=== PATIENT | female | born 2000 | race Native Hawaiian/Other Pacific Islander ===

== ENCOUNTER 2023-08-27 16:39 | Outpatient (CLI) | payer BC, SELFPAY ==
--- OUTSIDE RECORDS SUMMARY | 2023-08-28 06:09 | XMS_ITS | Continuity of Care Document ---
Author Name Unknown Organization [facility] Address [address] [place] [address] Care Team Providers Care Water Quality Control Engineer Name Role Phone Unavailable Unavailable Unavailable Allergies, [...] Copied on Encounter [facility], [address] [place] [address], [id number], [facility] No Information 0 No Information Referring Provider: SINDY Albert, [address] [place] [address], [address]. tel:[phone] [facility], [address] [place] [address], [id number], [facility] complete exam (chief complaint) Regular astigmatism, bilateral 0 No Information Referring Provider: SINDY Albert, [address] [place] [address], [address]. tel:[phone] [facility], [address], [id number], [facility] No Information 0 0 No Information Referring Provider: SINDY Albert, [address], [place], [address]. tel:[phone] [facility], [address], [place], [place], [id number], [facility] No Information 3 9 No Information Referring Provider: SINDY Albert, [address], [place], [address]. tel:[phone] [facility], [address], [place], [place], [id number], [facility] No Information 0 6201 9 No Information Referring Provider: SINDY Albert, [address], [place], [address]. tel:[phone] [facility], [address], [place], [place], [id number], [facility] No Information 8 No Information Family History Family Member Type Diagnosis Age At Onset Problem Family history of hyperopia Problem Family history of Amblyopia Payers Payer name Insurance type Covered alliance party ID Authoriza tion(s) No Information Social [...]
== END 2023-08-27 16:40 | disposition home or self-care (01) ==
LOC: AMB 08-28 06:07
PROVIDERS: Visit Provider Family Medicine
DX: R06.09 Other forms of dyspnea (principal)
CPT/HCPCS: A0425; A0427

== ENCOUNTER 2023-08-27 17:04 | Emergency (ER) | payer BC, SELFPAY ==
[2023-08-27 17:05] VITALS: BP 102/70; PULSE 95; RESP 20; TEMP 37.2; O2SAT 95; BMI 25.8
--- NOTE | 2023-08-27 17:30 | ED_ITS ---
HPI - Allergic Reaction General Chief complaint: Allergic Reaction Stated complaint: Allergic reaction Time Seen by Provider: 08/27/23 17:05 History of Present Illness HPI narrative: This 23-year-old female comes in reporting tightness in her breathing that occurred about that 90 minutes prior to arrival. She states that she had a meal at about 3:30 p.m., 2 hours ago now. She ate rice and pork belly and about a half an hour later she felt tightness in her breathing. She did not have any sign of angioedema or rash. 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 She does carry an EpiPen but did not use it and has never actually administered epinephrine to herself. She did take Benadryl 50 mg. She came in by ambulance where an IV was established but no treatments were given as she is feeling significantly better. There was lots of anxiety related to this feeling of tightness in her breathing. Related Data Previous Rx's Medication Instructions Recorded methylprednisolone 4 mg tablets in See Rx Instructions PO .COMPLEX 08/27/23 a dose pack (Medrol (Winston)) #21 ea Allergies Allergy/AdvReac Type Severity Reaction Status Date / Time tree nuts Allergy Intermediate Uncoded 08/27/23 17:09 Review of Systems Status of ROS Reports: 10 or more systems reviewed and unremarkable except as noted in History and below Narrative Constitutional: No fevers, no weight gain or loss. Eyes: No discharge. No vision changes. HENT: No congestion, no sore throat, no ear pain. Cardiovascular: No chest pain, no palpitations. Respiratory: No wheezes, no cough. She reports an episode of tight breathing as described above. Gastrointestinal: No abdominal pain, no vomiting, no diarrhea. Genitourinary: No dysuria, no hematuria. Musculoskeletal: Normal range of motion. Skin: No rashes, no pruritis. Neurological: No dizziness, weakness, sensory change, speech change. Endo/Heme/Allergies: No bruising or bleeding. No polydipsia. Pysch: no suicidality, no anxiety, no insomnia. All other systems reviewed and are negative. Exam Narrative: Exam Narrative: Constitutional: Well-developed, well-nourished, no acute distress. HEENT: Normocephalic, atraumatic. Neck: Normal range of motion. Nontender. Supple. Heart: Regular. No murmurs. Normal rate. Intact distal pulses. Lungs: Clear to auscultation. No chest discomfort. No wheezes, rhonchi, or r ales. Abdomen: Normal bowel sounds. Nontender. No rebound tenderness. Genitalia: Deferred. Back: No midline tenderness. Normal range of motion. Extremities: Normal range of motion. No injury. Skin: Intact. No rash. Warm. No erythema or pallor. No sign of angioedema or anaphylaxis. Neurologic: No altered sensation. No weakness. Alert and oriented. Psychiatric: No suicidality. No anxiety or depression. No insomnia. Nursing notes and vitals signs are reviewed. Const: Vital Signs, click to edit/add: Vital Signs - 24 hr 08/27/23 17:05 Temperature 99 F Pulse Rate [Pulse Oximeter] 95 Respiratory Rate 20 Blood Pressure [Ri ght Upper Arm] 102/70 Pulse Oximetry 95 Oxygen Delivery Me thod Room Air Course Vital Signs Vital signs: Initial Vital Signs Temperature 99 F 08/27/23 17:05 Temperature Source Temporal Artery Scan 08/27/23 17:05 Pulse Rate 95 08/27/23 17:05 Respiratory Rate 20 08/27/23 17:05 Blood Pressure 102/70 08/27/23 17:05 Blood Pressure Mean 80 08/27/23 17:05 Blood Pressure Position Supine 08/27/23 17:05 Pulse Oximetry 95 08/27/23 17:05 Oxygen Delivery Method Room Air 08/27/23 17:05 Vital Signs Temperature 99 F 08/27/23 17:05 Pulse Rate 95 08/27/23 17:05 Respiratory Rate 20 08/27/23 17:05 Blood Pressure 102/70 08/27/23 17:05 Pulse Oximetry 95 08/27/23 17:05 Oxygen Delivery Method Room Air 08/27/23 17:05 Temperature 99 F 08/27/23 17:05 Pulse Rate 95 08/27/23 17:05 Respiratory Rate 20 08/27/23 17:05 Blood Pressure 102/70 08/27/23 17:05 Pulse Oximetry 95 08/27/23 17:05 Oxygen Delivery Method Room Air 08/27/23 17:05 Medications Administered Medications: Discontinued Medications Generic Name Dose Route Start Last Admin Trade Name Freq PRN Reason Stop Dose Admin Methylprednisolone Sodium Succinate 125 mg 08/27/23 17:30 08/27/23 17:34 Methylprednisolone Sod Succ 62.5 Mg/Ml (125) IVP 08/27/23 17:31 125 mg ONCE ONE Administration MDM - Allergic Reaction MDM Narrative Medical decision making narrative: This patient comes in because of a feeling of tightness in her throat that occurred about half an hour after taking a meal. She does report a history of reaction to tree nuts and did not know of any such component in her meal. She did take Benadryl and is feeling better now but does not ascribe her improvement to the Benadryl self. She arrives here about 2 hours after exposure and an hour and a half after her symptoms which have now resolved. The time frame is just passed where a days level could be helpful to diagnose what affect the mast cell response would be for her symptoms here. The patient arrives with normal vital signs and feels normal except for some lingering anxiety related to this episode. She did receive an IV dose of Solu-Medrol 125 mg and was observed for an extra hour. She is not showing any further symptoms and is okay to be discharged home. She is taking Claritin as she does have other generalized allergy symptoms this time of year. Discharge Plan Discharge Clinical Impression: Allergic reaction Patient Disposition: Home, Self-Care Condition: Improved Additional Instructions: Use oral antihistamines as needed and directed. Use EpiPen also if symptoms of angioedema or anaphylaxis occur. Follow up with MD return if worsening. Prescriptions: New methylprednisolone [Medrol ([place])] 4 mg tablets,dose pack See Rx Instructions .ROUTE .COMPLEX Qty: 21 0RF Rx Instructions: orally per package directions Stand Alone Forms: [employer] Info Instructions
[2023-08-27] MEDS: METHYLPREDNISOLONE SOD SUCC 62.5 MG/ML (125) 125 MG IVP (17:34)
--- OUTSIDE RECORDS SUMMARY | 2023-08-27 17:50 | XMS_ITS | Continuity of Care Document ---
Author Name Unknown Organization [facility] Address [address] [place] [address] Care Team Providers Care Wall Attendant Name Role Phone Unavailable Unavailable Unavailable Allergies, Adverse Reactions, Alerts Substance Reaction Status Criticality tree nut Active No Information peanut Active No Information Procedures Procedure Date VALID UNBILLABLE DAY OR BERG DETERM REFRACTIVE STATE OPHTH SERV: MED EXAM; COMP EST 20 DETERMINATION OF REFRACTIVE STATE SCRIPT & FIT CONTACT; EX APHAK OPHTH SERV: MED EXAM; COMP EST DETERM REFRACTIVE STATE Advance Directives Directive Yes / No Effective Date File Name No Information Encounters Encounter Description Practice Location Reason(s) For Visit Diagnoses Date Provider Providers Copied on Encounter [facility], [address] [place] [address], [id number], [facility] No Information 0 No Information Referring Provider: SINDY Albert, [address] [place] [address], [id number]. tel:[phone] [facility], [address], [id number], [facility] complete exam (chief complaint) Regular astigmatism, bilateral 0 No Information Referring Provider: SINDY Albert, [address] [place] [address], [address]. tel:[phone] [facility], [address], [id number], [facility] No Information 0 0 No Information Referring Provider: SINDY Albert, [address], [place], [address]. tel:[phone] [facility], [address], [place], [place], [id number], [facility] No Information 3 9 No Information Referring Provider: SINDY Albert, [address], [place], [address]. tel:[phone] [facility], [address], [place], [place], [id number], [facility] No Information 0 6201 9 No Information Referring Provider: SINDY Albert, [address], [place], [address]. tel:[phone] [facility], [address], [place], [place], [id number], [facility] No Information 8 No Information Family History Family Member Type Diagnosis Age At Onset Problem Family history of Amblyopia Problem Family history of hyperopia Payers Payer name Insurance type Covered constitution party ID Authoriza tion(s) No Information Social History Type Description Quantity Date Captured Comments Sex Female Smoking Status No Information Chief Complaint And Reason For Visit No Information History Of Present Illness Encounter Date Complaint History Of Prese nt Illness complete exam Annual complete eye exam. Hasn't been wearing contacts that much, doesn't need an updated rx for today. Wearing glasses for near work. 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 Seeing well with glasses. No squinting. No guzman's or double vision. No other concerns noted. Instructions Date Instruction Additional Infor mation No Information Assessments Type Assessment Date No Information
--- OUTSIDE RECORDS SUMMARY | 2023-08-27 17:51 | XMS_ITS | Continuity of Care Document ---
Author Name Unknown Organization [facility] Address [address] [place] [address] Care Team Providers Care Ground Crewman Mission Support Name Role Phone Unavailable Unavailable Unavailable Allergies, [...] Copied on Encounter [facility], [address] [place] [address], [id number], [facility] No Information 0 No Information Referring Provider: SINDY Albert, [address] [place] [address], [address]. tel:[phone] [facility], [address], [place], [id number], [facility] complete exam (chief complaint) Regular astigmatism, bilateral 0 No Information Referring Provider: SINDY Albert, [address] [place] [address], [address]. tel:[phone] [facility], [address], [place], [id number], [facility] No Information 0 0 No Information Referring Provider: SINDY Albert, [address], [place], [address]. tel:[phone] [facility], [address], [place], [place], [id number], [facility] No Information 3 9 No Information Referring Provider: SINDY Albert, [address], [place], [address]. tel:[phone] [facility], [address], [place], [place], [id number], [facility] No Information 0 6201 9 No Information Referring Provider: SINDY Albert, [address], [place], [address]. tel:[phone] [facility], [address], [place], [place], [id number], [facility] No Information 8 No Information Family History Family Member Type Diagnosis Age At Onset Problem Family history of hyperopia Problem Family history of Amblyopia Payers Payer name Insurance type Covered constitution [...]
[2023-08-27 18:18] VITALS: PULSE 85; O2SAT 98
[2023-08-27 18:30] VITALS: PULSE 86; O2SAT 100
[2023-08-27 18:31] VITALS: BP 93/67; PULSE 81; RESP 18; O2SAT 98
== END 2023-08-27 18:46 | disposition home or self-care (01) ==
LOC: ED 17:49
PROVIDERS: Emergency Provider Emergency Medicine Emergency Medical Services
DX: T78.49XA Other allergy, initial encounter (principal)
CPT/HCPCS: 96374; 99283; 99284; J2919